=== PATIENT | female | born 1925 | race Caucasian/White ===

== ENCOUNTER 2017-08-14 14:29 | Outpatient (RCR) | payer MEDICARE ==
[~2017-08-14 14:29] MED LIST: AC325T PO; AC500T PO; ACET-461 PO; AMOX500C2 PO; ASP81TEC PO; CEPH500C PO; CHOL10003 PO; CHOL200018 PO; CYAN10006 PO; DONE5TAB30 PO; ESCI10TA48 PO; FNT25TD TD; HYDROCODONE; IBP600T1; LEVO250T46 PO; LEVO500T69 PO; LORA0.5T PO; LORA0.5T34 GT; MELO-198 PO; MORP20SO15 PO; MPR22T TOP; NEBI5TAB8 PO; OLME1TAB25 PO; OLME40TA14; OMEP20CA12 PO; ONDA-42 SL; ONDA2VIA IV; PARO10TA21 PO; PARO20TA57 PO; PARO30TA2 PO; PHEN200T27 PO; POTA8TAB PO; POTA8TAB6 PO; PRIMIDONE; RIVA1PAT3 TD; RNT150T PO; SENN1TAB6 PO; SULF1TAB38 PO; TLT2T PO; TOLT2TAB5 PO; TRZ50T PO; VALS1TAB4 PO; VALS1TAB74 PO
== END 2017-09-12 14:48 | disposition home or self-care (01) ==
PROVIDERS: ATTEND Internal Medicine
DX: M17.0 Bilateral primary osteoarthritis of knee (principal); G25.0 Essential tremor; M65.811 Other synovitis and tenosynovitis, right shoulder; M65.812 Other synovitis and tenosynovitis, left shoulder